=== PATIENT | female | born 1985 | race Hispanic/Latino ===

== ENCOUNTER 2016-12-15 16:22 | Emergency (ER) | payer SELFPAY ==
[2016-12-15] MEDS ORDERED: CATAPRES PO ONE (17:24)
[2016-12-15] MEDS ORDERED: BABY ASPIRIN PO ONE (17:24)
--- NOTE | 2016-12-15 17:27 | Emergency Department Report ---
Entered by LISSETH GARCIA, acting as scribe for ALIRIO SUAREZ NP. Chief Complaint: Chest Pain Stated Complaint: CHEST PAIN Time Seen by Provider: 12/15/16 17:11 - HPI History of Present Illness: 31 y/o non-toxic, non ill-appearing female in no acute distress presents to ED c /o chest pain, noting similar episodes in the past year. Describes pain as stabbing "like clawing my chest". Pt reports Hx of anxiety, and states she administered her valium last night and lithium this morning. Notes recent increase in [place] dose by Dr. Gomez. Denies EtOH or drug usage today. Denies abdominal pain, N/V, dizziness, numbness or tingling to extremities. Also notes mild "normal" headache. States pain "radiates to [her] legs". - ROS Review of Systems: + chest pain + mild headache - abdominal pain, N/V, dizziness, numbness, tingling - Exam Vital Signs: Vital Signs 12/15/16 16:55 Temperature 98.1 F Pulse Rate 91 H Respiratory 20 Rate Blood Pressure 173/120 O2 Sat by Pulse 97 Oximetry Physical Exam: Pt non-toxic, non ill in appearance, in on acute distress Cardio: Normal Heart sounds S1, S2 with no murmurs Resp: Lungs clear to auscultation bilaterally, no rales, rhonchi, wheezing Chest: Non reproducible chest pain MSE screening note: Focused history and physical exam performed. Due to findings the following was ordered: CBC, BMP, troponin, EKG, BNP, qualitative hcg serum, CXR, lithium stat, ASA 81 mg PO, Clonodine 0.2 mg PO ED Disposition for MSE Condition: Stable This documentation as recorded by the scribe,LISSETH GARCIA,accurately reflects the service I personally performed and the decisions made by me,ALIRIO SUAREZ, CT.
[2016-12-15 17:45] LABS: Eosinophils % (Auto) 2.1 % (0.0-4.3); Hematocrit 45.4 % (30.3-42.9); Hemoglobin 15.1 gm/dl (10.1-14.3); Mean Corpuscular HGB Conc 33 % (30-34); Mean Corpuscular Hemoglobin 30 pg (28-32); Mean Corpuscular Volume 90 fl (79-97); Platelet Count 320 K/mm3 (140-440); Red Blood Count 5.05 M/mm3 (3.65-5.03); Red Cell Distribution Width 13.2 % (13.2-15.2); White Blood Count 13.2 K/mm3 (4.5-11.0)
[2016-12-15 18:04] LABS: Anion Gap 20 mmol/L; BUN/Creatinine Ratio 2.85; Blood Urea Nitrogen 2 mg/dL (7-17); Calcium 10.3 mg/dL (8.4-10.2); Carbon Dioxide 23 mmol/L (22-30); Chloride 104.5 mmol/L (98-107); Glucose 125 mg/dL (65-100); Sodium 143 mmol/L (137-145)
--- NOTE | 2016-12-15 20:25 | Emergency Department Report ---
ED Chest Pain HPI - General Chief Complaint: Chest Pain Stated Complaint: CHEST PAIN Time Seen by Provider: 12/15/16 20:16 Source: patient, EMS Mode of arrival: Ambulatory Limitations: No Limitations - History of Present Illness Initial Comments: This is a 31-year-old female complaining of chest pain starting today. She describes it as being diffuse in the chest. She describes it as a tightness. She states that it feels heavy when she takes a deep breath. She denies any radiation of this pain. She states it is likely worse lying flat. She denies any significant change when taping deep breath however. She denies any pain to palpation of the chest wall. She denies any trauma. She does give a long- standing history of anxiety. She does take Valium regularly for this. She has several other psychiatric medications she takes on a regular basis as well. She denies any history of any Prior cardiac history. - Related Data Home Medications Medication Instructions Recorded Confirmed Last Taken [place] Carbonate [Eskalith] 300 mg PO TID 10/28/14 12/15/16 08/25/15 Zolpidem [Ambien] 10 mg PO QHS 10/28/14 12/15/16 12/15/16 Diazepam Tab [Valium] 2 mg PO QDAY PRN 12/15/16 12/15/16 Unknown Previous Rx's Medication Instructions Recorded Last Taken Type Indomethacin 50 mg PO Q12H #10 capsule 12/15/16 Unknown Rx Allergies Allergy/AdvReac Type Severity Reaction Status Date / Time latex AdvReac Rash Verified 10/28/14 12:59 UMU score - Umu Score Age > 65: (0) No Aspirin use within the Past 7 Days: (0) No 3 or more CAD Risk Factors: (0) No 2 or more Angina events in past 24 hrs: (0) No Known CAD with more than 50% Stenosis: (0) No Elevated Cardiac Markers: (0) No ST Deviation Greater than 0.5mm: (0) No UMU Score: 0 ED Review of Systems ROS: Stated complaint: CHEST PAIN Other details as noted in HPI Comment: All other systems reviewed and negative Constitutional: denies: chills, fever Eyes: denies: eye pain, eye discharge, vision change ENT: denies: ear pain, throat pain Respiratory: shortness of breath. denies: cough, wheezing Cardiovascular: chest pain. denies: palpitations Endocrine: no symptoms reported Gastrointestinal: denies: abdominal pain, nausea, diarrhea Genitourinary: denies: urgency, dysuria, discharge Musculoskeletal: denies: back pain, joint swelling, arthralgia Skin: denies: rash, lesions Neurological: denies: headache, weakness, paresthesias Psychiatric: anxiety. denies: depression Hematological/Lymphatic: denies: easy bleeding, easy bruising ED Past Medical Hx - Past Medical History Previous Medical History?: Yes Hx Hypertension: No Hx CVA: No Hx Heart Attack/AMI: No Hx Congestive Heart Failure: No Hx Psychiatric Treatment: Yes (anxiety, bipolar, depression) Additional medical history: pleurisy - Surgical History Past Surgical History?: No - Social History Smoking Status: Current Every Day Smoker Substance Use Type: Alcohol, Prescribed, Tranquilizers - Medications Home Medications: Home Medications Medication Instructions Recorded Confirmed Last Taken Type [place] Carbonate [Eskalith] 300 mg PO TID 10/28/14 12/15/16 08/25/15 History Zolpidem [Ambien] 10 mg PO QHS 10/28/14 12/15/16 12/15/16 History Diazepam Tab [Valium] 2 mg PO QDAY PRN 12/15/16 12/15/16 Unknown History Indomethacin 50 mg PO Q12H #10 capsule 12/15/16 Unknown Rx ED Physical Exam - General Limitations: No Limitations General appearance: alert, anxious (somewhat tachypneic.) - Head Head exam: Present: atraumatic, normocephalic - Eye Eye exam: Present: normal appearance, EOMI. Absent: scleral icterus - ENT ENT exam: Present: normal exam, normal orophraynx, mucous membranes moist - Neck Neck exam: Present: normal inspection, full ROM. Absent: tenderness, lymphadenopathy - Respiratory Respiratory exam: Present: normal lung sounds bilaterally. Absent: respiratory distress, wheezes, rales, rhonchi, chest wall tenderness - Cardiovascular Cardiovascular Exam: Present: regular rate, normal rhythm. Absent: systolic murmur, diastolic murmur, rubs, gallop - GI/Abdominal GI/Abdominal exam: Present: soft, normal bowel sounds. Absent: tenderness, guarding - Extremities Exam Extremities exam: Present: normal inspection, full ROM. Absent: tenderness, pedal edema, calf tenderness - Back Exam Back exam: Present: normal inspection. Absent: tenderness, CVA tenderness (R), CVA tenderness (L) - Neurological Exam Neurological exam: Present: alert, oriented X3 - Psychiatric Psychiatric exam: Present: normal mood, anxious - Skin Skin exam: Present: warm, dry, intact, normal color. Absent: rash ED Course Vital Signs 12/15/16 12/15/16 12/15/16 16:55 17:31 20:40 Temperature 98.1 F Pulse Rate 91 H 91 H Respiratory 20 20 Rate Blood Pressure 173/120 173/120 Blood Pressure [Left] O2 Sat by Pulse 97 Oximetry 12/15/16 21:12 Temperature 98.4 F Pulse Rate 88 Respiratory 20 Rate Blood Pressure Blood Pressure 145/90 [Left] O2 Sat by Pulse 100 Oximetry EKG at 1702 with ventricular rate 96 bpm and a sinus rhythm. Normal ID is noted normal QRS. Isoelectric. Mild QT prolongation is noted. Nonspecific ST- T wave abnormalities are noted. - Reevaluation(s) Reevaluation #1: 12/15/16 22:12 Lab studies are noted. Chest x-ray demonstrates normal cardiac silhouette without acute findings. ECG as well as unremarkable here. Enzymes are negative. His mentation does not seem consistent with coronary arteries disease or ACS. She does have risk factor of hypertension. She is not on any estrogen therapy. Should she satisfy his Percocet criteria. I have low suspicion for PE. I have a very strong suspicion of a significant anxiety component to her presentation today. I do have a suspicion as well for pleurisy. She indicates that she was diagnosed with pleurisy couple years ago and had significant improvement with that. Therapy she received. She also indicates she had URI about a week ago. This raises my suspicion for pleurisy. I did give steroids here per her request as well as pain shot. Patient is requesting anxiolytic. I am hesitant to do this as she has already been on Valium today. I do not suspect that would be necessarily beneficial or useful in her treatment. She is noted to be modestly stay Here. I suspect again this is related primarily to her anxiety component. I did try to provide reassurance. I feel that she is safe for outpatient management. She agrees to return if there is any worsening. ED Medical Decision Making - Lab Data Result diagrams: 12/15/16 17:27 05/08/17 17:27 - Radiology Data interpreted by me: Stable chest. No infiltrate. Normal cardiac silhouette. Critical care attestation.: If time is entered above; I have spent that time in minutes in the direct care of this critically ill patient, excluding procedure time. ED Disposition Clinical Impression: Pleurisy Disposition: DISCHARGED TO HOME OR SELFCARE Is pt being admited?: No Does the pt Need Aspirin: No Condition: Stable Instructions: Pleurisy (ED) Additional Instructions: Continue with her Valium for anxiety needs. Take anti-inflammatory medications regularly for the next several days. Return if any acute worsening. Prescriptions: Indomethacin 50 mg PO Q12H #10 capsule Referrals: PRIMARY CARE, [Primary Care Provider] - 3-5 Days Time of Disposition: 20:30
[2016-12-15] MEDS ORDERED: TORADOL IM ONE (20:28)
[2016-12-15] MEDS ORDERED: DECADRON IM ONE (20:29)
[2016-12-15] MEDS ORDERED: TORADOL ONE (20:29)
[2016-12-15 20:36] LABS: Urine Drugs of Abuse Note Disclamer
[2016-12-15 20:59] LABS: Bacteria,Urine 1+ /HPF (Negative); Bilirubin,Urine NEG (Negative); Blood,Urine NEG (Negative); Ketones,Urine NEG (Negative); Leukocyte Esterase,Urine SM (Negative); Mucus,Urine FEW /HPF; Nitrite,Urine NEG (Negative); Urobilinogen,Urine < 2.0 mg/dL (<2.0); WBC,Urine < 1.0 /HPF (0.0-6.0)
[2016-12-15 21:13] VITALS: BP 145/90
--- NOTE | 2016-12-16 08:32 | XRay Report ---
CHEST 2 VIEWS INDICATION: Chest pain, on and off for 2-3 months. Smoker. COMPARISON: None similar. FINDINGS: PA and lateral chest radiographs demonstrate normal cardiomediastinal silhouette and clear lungs, given the inspiration. Intact bones. CONCLUSION: No acute disease in the chest. Thank you for the opportunity to participate in this patient's care.
== END 2016-12-15 21:10 | disposition home or self-care (01) ==
LOC: ED 16:22
DX: R09.1 Pleurisy (principal); F31.9 Bipolar disorder, unspecified; F41.9 Anxiety disorder, unspecified; F17.200 Nicotine dependence, unspecified, uncomplicated; Z91.040 Latex allergy status
CPT/HCPCS: 36415; 71020; 80048; 80178; 80307; 81001; 81025; 83880; 84484; 84703; 85025; 93005; 93010; 96372; 99285; J1100; J1885